=== PATIENT | male | born 1995 | race Caucasian/White ===

== ENCOUNTER 2022-08-10 00:53 | Emergency (ER) | payer OTHER ==
[~2022-08-10] VITALS: Ht 190.5 cm; Wt 113.6 kg
[2022-08-10 01:07] VITALS: TEMP 98.4
[2022-08-10 01:50] LABS: BASOPHILS % (AUTO) 1.1 % (0.0-2.0); EOSINOPHILS % (AUTO) 1.4 % (1.0-6.0); HEMOGLOBIN 14.4 g/dL (13.5-17.5); LYMPHOCYTES # (AUTO) 2.5 K/uL (1.0-4.8); LYMPHOCYTES % (AUTO) 24.2 % (22.0-44.0); MEAN CORPUSCULAR HEMOGLOBIN 30.2 pg (26.0-34.0); MEAN CORPUSCULAR HGB CONC 34.2 G/dL (31.0-37.0); MEAN CORPUSCULAR VOLUME 88 fL (80-100); MONOCYTES # (AUTO) 0.9 K/uL (0.1-1.0); MONOCYTES % (AUTO) 8.7 % (2.0-9.0); NEUTROPHILS # (AUTO) 6.8 K/uL (1.8-7.7); NEUTROPHILS % (AUTO) 64.6 % (40.0-70.0); PLATELET COUNT (AUTO) 244 K/uL (150-450); RED BLOOD CELL COUNT(AUTO) 4.76 MIL/uL (4.50-5.90); RED CELL DISTRIBUTION WIDTH 13.6 % (11.5-14.5)
[2022-08-10 01:59] LABS: ANION GAP 10 mmol/L (8-16); CALCIUM, TOTAL 9.1 mg/dL (8.8-10.5); CARBON DIOXIDE 27 mmol/L (22-29); CHLORIDE 105 mmol/L (98-107); CREATININE 1.02 mg/dL (0.60-1.30); GLOMERULAR FILTR. RATE CALC > 60 mL/min (>60); GLUCOSE,RANDOM 93 mg/dL (70-110); SODIUM SERUM 142 mmol/L (136-145)
[2022-08-10 02:04] LABS: ALANINE AMINOTRANSFERASE 23 U/L (12-78); ALBUMIN 3.5 g/dL (3.4-5.0); ALKALINE PHOSPHATASE 82 U/L (46-116); ASPARTATE AMINOTRANSFERASE 16 U/L (15-37); BILIRUBIN,TOTAL 0.5 mg/dL (0.1-1.0); TOTAL PROTEIN, SERUM 7.1 g/dL (6.4-8.2)
[2022-08-10 04:19] VITALS: BP 140/68; PULSE 68; RESP 18
== END 2022-08-10 06:07 | disposition home or self-care (01) ==
LOC: EMS 00:53
DX: F20.9 Schizophrenia, unspecified (principal); Z59.00 Homelessness unspecified
CPT/HCPCS: 80053; 85025; 36415; 99284; G0480

== ENCOUNTER 2022-08-28 15:31 | Inpatient (IN) | payer MEDICAID, OTHER ==
[~2022-08-28] VITALS: Ht 190.5 cm; Wt 121.3 kg
[2022-08-28 18:14] LABS: COVID AG,FIA SOURCE NASOPHARYNGEAL
[2022-08-28 18:24] LABS: AMPHET/METH SCREEN,URINE NEGATIVE (NEGATIVE); BARBITURATE SCREEN, URINE NEGATIVE (NEGATIVE); BENZODIAZEPINES SCREEN,URINE NEGATIVE (NEGATIVE); CANNABINOID SCREEN,URINE NEGATIVE (NEGATIVE); COCAINE SCREEN,URINE NEGATIVE (NEGATIVE); METHADONE SCREEN, URINE NEGATIVE (NEGATIVE); OPIATE SCREEN,URINE NEGATIVE (NEGATIVE); PHENCYCLIDINE SCREEN,URINE NEGATIVE (NEGATIVE)
[2022-08-28 20:25] LABS: BASOPHILS % (AUTO) 1.3 % (0.0-2.0); EOSINOPHILS % (AUTO) 2.2 % (1.0-6.0); HEMATOCRIT 43.8 % (41-53); HEMOGLOBIN 14.9 g/dL (13.5-17.5); LYMPHOCYTES # (AUTO) 2.1 K/uL (1.0-4.8); LYMPHOCYTES % (AUTO) 20.2 % (22.0-44.0); MEAN CORPUSCULAR HEMOGLOBIN 30.5 pg (26.0-34.0); MEAN CORPUSCULAR VOLUME 90 fL (80-100); MONOCYTES # (AUTO) 0.7 K/uL (0.1-1.0); MONOCYTES % (AUTO) 6.5 % (2.0-9.0); NEUTROPHILS # (AUTO) 7.4 K/uL (1.8-7.7); NEUTROPHILS % (AUTO) 69.8 % (40.0-70.0); PLATELET COUNT (AUTO) 290 K/uL (150-450); RED BLOOD CELL COUNT(AUTO) 4.89 MIL/uL (4.50-5.90); RED CELL DISTRIBUTION WIDTH 13.6 % (11.5-14.5)
[2022-08-28 20:35] LABS: ANION GAP 8 mmol/L (8-16); CALCIUM, TOTAL 9.2 mg/dL (8.8-10.5); CARBON DIOXIDE 27 mmol/L (22-29); CHLORIDE 101 mmol/L (98-107); CREATININE 1.11 mg/dL (0.60-1.30); GLOMERULAR FILTR. RATE CALC > 60 mL/min (>60); GLUCOSE,RANDOM 95 mg/dL (70-110); POTASSIUM 4.2 mmol/L (3.5-5.1); SODIUM SERUM 136 mmol/L (136-145)
[2022-08-28 20:41] LABS: ALANINE AMINOTRANSFERASE 20 U/L (12-78); ALBUMIN 3.7 g/dL (3.4-5.0); ALKALINE PHOSPHATASE 87 U/L (46-116); ASPARTATE AMINOTRANSFERASE 17 U/L (15-37); BILIRUBIN,TOTAL 0.2 mg/dL (0.1-1.0); TOTAL PROTEIN, SERUM 7.4 g/dL (6.4-8.2)
[2022-08-28] MEDS ORDERED: LORazepam 2 MG TABLET PO PRN (21:45)
[2022-08-28] MEDS ORDERED: HALOPERIDOL 5 MG TABLET PO PRN (21:45)
[2022-08-29] MEDS ORDERED: HALOPERIDOL LACTATE 5 MG/ML VIAL ONE (03:49)
[2022-08-29] MEDS ORDERED: DiphenhydrAMINE HCL 50 MG/ML VIAL ONE (03:49)
[2022-08-29] MEDS ORDERED: LORazepam 2 MG/ML VIAL ONE (03:49)
[2022-08-29] MEDS ORDERED: HALOPERIDOL LACTATE 5 MG/ML VIAL IM ONE (04:00)
[2022-08-29] MEDS ORDERED: DiphenhydrAMINE HCL 50 MG/ML VIAL IM ONE (04:00)
[2022-08-29] MEDS ORDERED: LORazepam 2 MG/ML VIAL IM ONE (04:00)
[2022-08-30 00:43] VITALS: BP 126/66; PULSE 72; RESP 18; TEMP 97.8; O2SAT 99
[2022-08-30 08:13] VITALS: BP 120/82; PULSE 79; RESP 18; TEMP 97.5; O2SAT 98
[2022-08-30] MEDS: ALOE VERA 100% 360 ML GEL TP SCH ×2 (09:00→17:15)
[2022-08-30] MEDS ORDERED: MAG HYDROX/AL HYDROX/SIMETH ES 30 ML SUSPENSION UDCUP PO PRN (16:30)
[2022-08-30] MEDS ORDERED: ALBUTEROL SULFATE HFA 90 MCG/PUFF 8 GM INHALER IH PRN (16:30)
[2022-08-30] MEDS ORDERED: NICOTINE 14 MG/24 HOUR PATCH TD PRN (16:30)
[2022-08-30] MEDS ORDERED: GuaiFENesin/D-METHORPHAN [SUGAR-FREE] 200-20MG/10 ML SYRUP UDCUP PO PRN (16:30)
[2022-08-30] MEDS ORDERED: ONDANSETRON HCL 4 MG TABLET PO PRN (16:30)
[2022-08-30] MEDS ORDERED: PETROLATUM,WHITE 28 GM JELLY TP PRN (16:30)
[2022-08-30] MEDS ORDERED: DOCUSATE SODIUM 100 MG CAPSULE PO PRN (16:30)
[2022-08-30] MEDS ORDERED: ACETAMINOPHEN 325 MG TABLET PO PRN (16:30)
[2022-08-30] MEDS ORDERED: CloNIDine HCL 0.1 MG TABLET PO PRN (16:30)
[2022-08-30] MEDS ORDERED: LOPERAMIDE HCL 2 MG CAPSULE PO PRN (16:30)
[2022-08-30] MEDS ORDERED: IBUPROFEN 400 MG TABLET PO PRN (16:30)
[2022-08-30] MEDS ORDERED: MAGNESIUM HYDROXIDE SUSPENSION 30 ML UDCUP PO PRN (16:30)
[2022-08-30 20:12] VITALS: BP 107/62; PULSE 78; RESP 18; TEMP 98; O2SAT 98
[2022-08-31] MEDS: ALOE VERA 100% 360 ML GEL TP SCH ×2 (09:17→17:00)
[2022-08-31] MEDS ORDERED: LORazepam 2 MG/ML VIAL ONE (10:21)
[2022-08-31] MEDS ORDERED: HALOPERIDOL LACTATE 5 MG/ML VIAL ONE (10:22)
[2022-08-31] MEDS ORDERED: LORazepam 2 MG/ML VIAL IM ONE (10:30)
[2022-08-31] MEDS ORDERED: HALOPERIDOL LACTATE 5 MG/ML VIAL IM ONE (10:30)
[2022-08-31] MEDS: RisperiDONE 1 MG TABLET PO SCH (17:00)
[2022-08-31 20:13] VITALS: BP 104/62; PULSE 74; RESP 20; TEMP 98; O2SAT 98
[2022-09-01 08:31] VITALS: BP 122/70; PULSE 67; RESP 18; TEMP 97.2; O2SAT 98
[2022-09-01] MEDS: ALOE VERA 100% 360 ML GEL TP SCH ×2 (09:00→17:00)
[2022-09-01] MEDS: RisperiDONE 1 MG TABLET PO SCH ×2 (09:00→17:00)
[2022-09-01 20:10] VITALS: BP 137/93; PULSE 85; RESP 19; TEMP 97.8; O2SAT 96
[2022-09-02 07:53] LABS: HEMOGLOBIN A1C 5.2 % (3.8-5.6)
[2022-09-02 08:09] LABS: CHOL/HDL RATIO 4.2 (4.2-7.3); THYROID STIMULATING HORMONE 4.05 uIU/mL (0.36-3.74)
[2022-09-02] MEDS: RisperiDONE 1 MG TABLET PO SCH ×2 (09:00→17:00)
[2022-09-02] MEDS: ALOE VERA 100% 360 ML GEL TP SCH ×2 (09:00→17:00)
[2022-09-02 09:17] VITALS: BP 140/76; PULSE 78; RESP 16; TEMP 98; O2SAT 99
[2022-09-02 20:16] VITALS: BP 140/69; PULSE 75; RESP 20; TEMP 97.6; O2SAT 96
[2022-09-03] MEDS: ALOE VERA 100% 360 ML GEL TP SCH ×2 (08:24→17:00)
[2022-09-03] MEDS: RisperiDONE 1 MG TABLET PO SCH ×2 (08:24→17:00)
[2022-09-03 08:28] VITALS: BP 124/66; PULSE 81; RESP 18; TEMP 98.2; O2SAT 98
[2022-09-03 19:53] VITALS: BP 131/71; PULSE 79; RESP 19; TEMP 97.8; O2SAT 97
[2022-09-03 21:56] VITALS: BP 131/71; PULSE 79; RESP 19; TEMP 97.8; O2SAT 97
[2022-09-03] MEDS ORDERED: DiphenhydrAMINE HCL 50 MG/ML VIAL ONE (22:44)
[2022-09-03] MEDS ORDERED: LORazepam 2 MG/ML VIAL ONE (22:44)
[2022-09-03] MEDS ORDERED: HALOPERIDOL LACTATE 5 MG/ML VIAL ONE (22:44)
[2022-09-03] MEDS ORDERED: LORazepam 2 MG/ML VIAL IM ONE (22:45)
[2022-09-03] MEDS ORDERED: HALOPERIDOL LACTATE 5 MG/ML VIAL IM ONE (22:45)
[2022-09-03] MEDS ORDERED: DiphenhydrAMINE HCL 50 MG/ML VIAL IM ONE (22:45)
[2022-09-04] MEDS: RisperiDONE 1 MG TABLET PO SCH ×2 (08:18→16:28)
[2022-09-04] MEDS: ALOE VERA 100% 360 ML GEL TP SCH ×2 (08:18→16:29)
[2022-09-04 08:37] VITALS: BP 129/79; PULSE 80; RESP 20; TEMP 96.8; O2SAT 99
[2022-09-04 21:53] VITALS: BP 144/93; PULSE 65; RESP 18; TEMP 97.2; O2SAT 99
[2022-09-05 08:15] VITALS: BP 119/74; PULSE 62; RESP 18; TEMP 98.3; O2SAT 98
[2022-09-05] MEDS: RisperiDONE 1 MG TABLET PO SCH ×3 (08:40→16:25)
[2022-09-05] MEDS: ALOE VERA 100% 360 ML GEL TP SCH ×2 (08:41→16:26)
[2022-09-05 20:18] VITALS: BP 127/66; PULSE 79; RESP 20; TEMP 98.3; O2SAT 97
[2022-09-06] MEDS: RisperiDONE 1 MG TABLET PO SCH ×3 (08:08→17:00)
[2022-09-06] MEDS: ALOE VERA 100% 360 ML GEL TP SCH ×3 (08:08→17:00)
[2022-09-06 08:24] VITALS: BP 144/85; PULSE 77; RESP 18; TEMP 98.2; O2SAT 97
[2022-09-06 20:20] VITALS: BP 136/81; PULSE 94; RESP 20; TEMP 98.2; O2SAT 98
[2022-09-06] MEDS ORDERED: LORazepam 2 MG/ML VIAL ONE (21:11)
[2022-09-06] MEDS ORDERED: DiphenhydrAMINE HCL 50 MG/ML VIAL ONE (21:11)
[2022-09-06] MEDS ORDERED: HALOPERIDOL LACTATE 5 MG/ML VIAL ONE (21:12)
[2022-09-06] MEDS ORDERED: DiphenhydrAMINE HCL 50 MG/ML VIAL IM ONE (21:15)
[2022-09-06] MEDS ORDERED: HALOPERIDOL LACTATE 5 MG/ML VIAL IM ONE (21:15)
[2022-09-06] MEDS ORDERED: LORazepam 2 MG/ML VIAL IM ONE (21:15)
[2022-09-07] MEDS: RisperiDONE 1 MG TABLET PO SCH ×2 (08:55→16:38)
[2022-09-07] MEDS: ALOE VERA 100% 360 ML GEL TP SCH ×2 (08:55→16:38)
[2022-09-07 09:00] VITALS: BP 107/60; PULSE 65; RESP 16; TEMP 97.2; O2SAT 99
[2022-09-07 20:16] VITALS: BP 110/62; PULSE 70; RESP 18; TEMP 97.6; O2SAT 98
[2022-09-08 08:26] VITALS: BP 113/61; PULSE 68; RESP 17; TEMP 97.8; O2SAT 94
[2022-09-08] MEDS: RisperiDONE 1 MG TABLET PO SCH ×2 (09:00→17:00)
[2022-09-08] MEDS: ALOE VERA 100% 360 ML GEL TP SCH ×2 (09:00→17:00)
[2022-09-08] MEDS ORDERED: DiphenhydrAMINE HCL 50 MG/ML VIAL IM ONE (17:15)
[2022-09-08] MEDS ORDERED: HALOPERIDOL LACTATE 5 MG/ML VIAL IM ONE (17:15)
[2022-09-08] MEDS ORDERED: LORazepam 2 MG/ML VIAL IM ONE (17:15)
[2022-09-08 20:13] VITALS: BP 134/62; PULSE 73; RESP 20; TEMP 98.3; O2SAT 97
[2022-09-09 08:43] VITALS: BP 121/66; PULSE 60; RESP 18; TEMP 98.2; O2SAT 98
[2022-09-09] MEDS: RisperiDONE 1 MG TABLET PO SCH ×2 (09:00→17:00)
[2022-09-09] MEDS: ALOE VERA 100% 360 ML GEL TP SCH ×2 (09:00→17:00)
[2022-09-09 20:12] VITALS: BP 114/64; PULSE 68; RESP 18; TEMP 98; O2SAT 98
[2022-09-10 08:29] VITALS: BP 126/65; PULSE 79; RESP 18; TEMP 97.8; O2SAT 98
[2022-09-10] MEDS: RisperiDONE 1 MG TABLET PO SCH ×2 (09:00→17:00)
[2022-09-10] MEDS: ALOE VERA 100% 360 ML GEL TP SCH ×2 (09:00→17:00)
[2022-09-10] MEDS ORDERED: HALOPERIDOL LACTATE 5 MG/ML VIAL ONE (18:04)
[2022-09-10] MEDS ORDERED: LORazepam 2 MG/ML VIAL ONE (18:04)
[2022-09-10] MEDS ORDERED: DiphenhydrAMINE HCL 50 MG/ML VIAL ONE (18:04)
[2022-09-10] MEDS ORDERED: DiphenhydrAMINE HCL 50 MG/ML VIAL IM ONE (18:15)
[2022-09-10] MEDS ORDERED: HALOPERIDOL LACTATE 5 MG/ML VIAL IM ONE (18:15)
[2022-09-10] MEDS ORDERED: LORazepam 2 MG/ML VIAL IM ONE (18:15)
[2022-09-10 20:17] VITALS: BP 125/66; PULSE 80; RESP 18; TEMP 98
[2022-09-11 08:12] VITALS: RESP 18
[2022-09-11] MEDS: RisperiDONE 1 MG TABLET PO SCH ×2 (08:56→17:00)
[2022-09-11] MEDS: ALOE VERA 100% 360 ML GEL TP SCH ×2 (08:57→17:00)
[2022-09-11 20:12] VITALS: BP 117/67; PULSE 70; RESP 19; TEMP 98; O2SAT 97
[2022-09-12] MEDS: ALOE VERA 100% 360 ML GEL TP SCH ×2 (08:03→17:00)
[2022-09-12] MEDS: RisperiDONE 1 MG TABLET PO SCH ×2 (08:03→17:00)
[2022-09-12 08:14] VITALS: BP 121/74; PULSE 67; RESP 18; TEMP 97.2; O2SAT 97
[2022-09-12 20:09] VITALS: BP 125/72; PULSE 66; RESP 20; TEMP 98.5; O2SAT 97
[2022-09-12] MEDS: ZOLPIDEM TARTRATE 10 MG TABLET PO PRN (23:21)
[2022-09-13 08:14] VITALS: BP 133/86; PULSE 81; RESP 18; TEMP 97.9; O2SAT 96
[2022-09-13] MEDS: RisperiDONE 1 MG TABLET PO SCH ×3 (08:26→17:00)
[2022-09-13] MEDS: ALOE VERA 100% 360 ML GEL TP SCH ×2 (09:00→17:00)
[2022-09-13 20:12] VITALS: BP 129/84; PULSE 84; RESP 20; TEMP 98; O2SAT 98
[2022-09-14 08:17] VITALS: BP 149/96; PULSE 71; RESP 18; TEMP 97.9; O2SAT 98
[2022-09-14] MEDS: RisperiDONE 1 MG TABLET PO SCH ×2 (08:45→16:07)
[2022-09-14] MEDS: ALOE VERA 100% 360 ML GEL TP SCH ×2 (08:45→16:07)
[2022-09-14] MEDS ORDERED: LORazepam 2 MG/ML VIAL ONE (11:32)
[2022-09-14] MEDS ORDERED: DiphenhydrAMINE HCL 50 MG/ML VIAL ONE (11:33)
[2022-09-14] MEDS ORDERED: HALOPERIDOL LACTATE 5 MG/ML VIAL ONE (11:34)
[2022-09-14] MEDS ORDERED: LORazepam 2 MG/ML VIAL IM ONE (11:45)
[2022-09-14] MEDS ORDERED: HALOPERIDOL LACTATE 5 MG/ML VIAL IM ONE (11:45)
[2022-09-14] MEDS ORDERED: DiphenhydrAMINE HCL 50 MG/ML VIAL IM ONE (11:45)
[2022-09-14 23:30] VITALS: BP 136/86; PULSE 77; RESP 18; TEMP 97.7; O2SAT 98
[2022-09-15 08:28] VITALS: BP 119/65; PULSE 63; RESP 17; TEMP 97.2; O2SAT 99
[2022-09-15] MEDS: RisperiDONE 1 MG TABLET PO SCH ×2 (08:44→17:00)
[2022-09-15] MEDS: ALOE VERA 100% 360 ML GEL TP SCH ×2 (08:45→17:00)
[2022-09-15 20:03] VITALS: BP 139/84; PULSE 73; RESP 18; TEMP 97.5; O2SAT 97
[2022-09-15] MEDS: ZOLPIDEM TARTRATE 10 MG TABLET PO PRN (20:38)
[2022-09-16] MEDS: RisperiDONE 1 MG TABLET PO SCH ×2 (08:37→17:00)
[2022-09-16 08:51] VITALS: BP 116/68; PULSE 63; RESP 17; TEMP 98; O2SAT 97
[2022-09-16 20:15] VITALS: BP 120/71; PULSE 71; RESP 18; TEMP 98.3; O2SAT 97
[2022-09-16] MEDS: ZOLPIDEM TARTRATE 10 MG TABLET PO PRN (22:10)
[2022-09-17] MEDS: RisperiDONE 1 MG TABLET PO SCH ×2 (08:17→16:24)
[2022-09-17 08:37] VITALS: BP 139/71; PULSE 88; RESP 18; TEMP 98; O2SAT 98
[2022-09-17 20:44] VITALS: BP 136/69; PULSE 80; RESP 18; TEMP 98.4; O2SAT 98
[2022-09-17] MEDS: ZOLPIDEM TARTRATE 10 MG TABLET PO PRN (22:25)
[2022-09-18 08:21] VITALS: BP 130/77; PULSE 78; RESP 16; TEMP 97.9; O2SAT 99
[2022-09-18] MEDS: RisperiDONE 1 MG TABLET PO SCH ×2 (08:47→16:53)
[2022-09-18 20:19] VITALS: BP 156/78; PULSE 77; RESP 18; TEMP 98.3; O2SAT 96
[2022-09-19 08:48] VITALS: BP 117/69; PULSE 74; RESP 16; TEMP 98.3; O2SAT 97
[2022-09-19] MEDS: RisperiDONE 1 MG TABLET PO SCH ×2 (08:50→16:05)
[2022-09-19] MEDS: ZOLPIDEM TARTRATE 10 MG TABLET PO PRN (20:11)
[2022-09-19 20:40] VITALS: BP 126/73; PULSE 81; RESP 17; TEMP 98; O2SAT 97
[2022-09-20 08:20] VITALS: BP 138/84; PULSE 75; RESP 18; TEMP 97.7; O2SAT 97
[2022-09-20] MEDS: RisperiDONE 1 MG TABLET PO SCH (08:46)
[2022-09-20] MEDS ORDERED: RISP1TAB98 PO ×2 (12:41→13:18)
== END 2022-09-20 13:00 | disposition left against medical advice (07) | DRG 750 ==
LOC: EMS 15:32 → B3A 08-30 00:39
PROVIDERS: ADMIT Psychiatry & Neurology Child & Adolescent Psychiatry; ATTEND Psychiatry & Neurology Child & Adolescent Psychiatry
DX: F20.0 Paranoid schizophrenia (principal); E66.9 Obesity, unspecified; F19.10 Other psychoactive substance abuse, uncomplicated; F84.0 Autistic disorder; Z20.822 Contact with and (suspected) exposure to COVID-19; Z53.21 Procedure and treatment not carried out due to patient leaving prior to being seen by health care provider; G47.00 Insomnia, unspecified; R10.13 Epigastric pain; Z59.00 Homelessness unspecified; Z68.33 Body mass index [BMI] 33.0-33.9, adult
CPT/HCPCS: 80053; 80061; 80307; 83036; 84443; 85025; 99285; G0480; J1200; J1630; J2060

== ENCOUNTER 2022-10-08 05:54 | Emergency (ER) | payer MEDICAID, OTHER ==
[~2022-10-08] VITALS: Ht 182.9 cm; Wt 113.6 kg
[~2022-10-08 05:54] MED LIST: RISP1TAB98 PO
[2022-10-08 06:21] VITALS: TEMP 98.3
[2022-10-08] MEDS ORDERED: SELENIUM SULFIDE 1% 207 ML SHAMPOO TP ONE (08:15)
[2022-10-08 13:02] VITALS: BP 135/78; PULSE 88; RESP 16
== END 2022-10-08 13:02 | disposition home or self-care (01) ==
LOC: EMS 05:56
DX: M79.672 Pain in left foot (principal); M79.671 Pain in right foot; B85.0 Pediculosis due to Pediculus humanus capitis; F84.0 Autistic disorder; F12.90 Cannabis use, unspecified, uncomplicated; Z59.00 Homelessness unspecified
CPT/HCPCS: 99285; Z7502; Z7610

== ENCOUNTER 2022-12-01 05:40 | Inpatient (IN) | payer MEDICAID, OTHER ==
[~2022-12-01] VITALS: Ht 190.5 cm; Wt 125.7 kg
[2022-12-01] MEDS ORDERED: RisperiDONE 1 MG TABLET PO ONE (06:30)
[2022-12-01 07:05] LABS: EOSINOPHILS % (AUTO) 2.9 % (1.0-6.0); HEMATOCRIT 40.4 % (41-53); HEMOGLOBIN 13.5 g/dL (13.5-17.5); LYMPHOCYTES # (AUTO) 1.9 K/uL (1.0-4.8); MEAN CORPUSCULAR HEMOGLOBIN 29.6 pg (26.0-34.0); MEAN CORPUSCULAR HGB CONC 33.5 G/dL (31.0-37.0); MEAN CORPUSCULAR VOLUME 88 fL (80-100); MONOCYTES # (AUTO) 0.8 K/uL (0.1-1.0); MONOCYTES % (AUTO) 8.8 % (2.0-9.0); NEUTROPHILS # (AUTO) 5.7 K/uL (1.8-7.7); NEUTROPHILS % (AUTO) 65.3 % (40.0-70.0); PLATELET COUNT (AUTO) 277 K/uL (150-450); RED BLOOD CELL COUNT(AUTO) 4.57 MIL/uL (4.50-5.90); RED CELL DISTRIBUTION WIDTH 13.1 % (11.5-14.5); WHITE BLOOD COUNT (AUTO) 8.7 K/uL (4.5-11.0)
[2022-12-01 07:21] LABS: ANION GAP 7 mmol/L (8-16); CARBON DIOXIDE 26 mmol/L (22-29); CHLORIDE 105 mmol/L (98-107); CREATININE 0.98 mg/dL (0.60-1.30); GLOMERULAR FILTR. RATE CALC > 60 mL/min (>60); GLUCOSE,RANDOM 100 mg/dL (70-110); SODIUM SERUM 138 mmol/L (136-145); UREA NITROGEN, BLOOD 21 mg/dL (7-18)
[2022-12-01 07:25] LABS: ALANINE AMINOTRANSFERASE 31 U/L (12-78); ALBUMIN 3.4 g/dL (3.4-5.0); ALKALINE PHOSPHATASE 79 U/L (46-116); ASPARTATE AMINOTRANSFERASE 22 U/L (15-37); BILIRUBIN,TOTAL 0.4 mg/dL (0.1-1.0); TOTAL PROTEIN, SERUM 6.8 g/dL (6.4-8.2)
[2022-12-01 07:41] LABS: ALCOHOL, BLOOD (SERUM) < 3 mg/dL (0-10)
[2022-12-01 07:52] LABS: COVID AG,FIA SOURCE NASAL SWAB
[2022-12-01 08:15] LABS: SARS-COV2 (COVID) ANTIGEN,FIA Negative (Negative)
[2022-12-01 09:10] LABS: PH,URINE DRUG SCREEN 6.5 (5.0-8.0)
[2022-12-01] MEDS ORDERED: ZOLPIDEM TARTRATE 10 MG TABLET PO PRN (09:15)
[2022-12-01] MEDS ORDERED: HALOPERIDOL 5 MG TABLET PO PRN (09:15)
[2022-12-01] MEDS ORDERED: LORazepam 2 MG TABLET PO PRN (09:15)
[2022-12-01 09:16] LABS: ALCOHOL, URINE DRUG SCREEN NEGATIVE (NEGATIVE); AMPHET/METH SCREEN,URINE NEGATIVE (NEGATIVE); BARBITURATE SCREEN, URINE NEGATIVE (NEGATIVE); BENZODIAZEPINES SCREEN,URINE NEGATIVE (NEGATIVE); CANNABINOID SCREEN,URINE NEGATIVE (NEGATIVE); COCAINE SCREEN,URINE NEGATIVE (NEGATIVE); METHADONE SCREEN, URINE NEGATIVE (NEGATIVE); OPIATE SCREEN,URINE NEGATIVE (NEGATIVE); PHENCYCLIDINE SCREEN,URINE NEGATIVE (NEGATIVE)
[2022-12-01 13:00] VITALS: BP 141/93; PULSE 85; RESP 18; TEMP 97.7; O2SAT 98
[2022-12-01] MEDS ORDERED: LOPERAMIDE HCL 2 MG CAPSULE PO PRN (18:15)
[2022-12-01] MEDS ORDERED: BACITRACIN 28 GM OINTMENT TP PRN (18:15)
[2022-12-01] MEDS ORDERED: DOCUSATE SODIUM 100 MG CAPSULE PO PRN (18:15)
[2022-12-01] MEDS ORDERED: CloNIDine HCL 0.1 MG TABLET PO PRN (18:15)
[2022-12-01] MEDS ORDERED: ONDANSETRON HCL 4 MG TABLET PO PRN (18:15)
[2022-12-01] MEDS ORDERED: MAGNESIUM HYDROXIDE SUSPENSION 30 ML UDCUP PO PRN (18:15)
[2022-12-01] MEDS ORDERED: ACETAMINOPHEN 325 MG TABLET PO PRN (18:15)
[2022-12-01] MEDS ORDERED: IBUPROFEN 600 MG TABLET PO PRN (18:15)
[2022-12-01] MEDS ORDERED: BENZOCAINE/MENTHOL LOZENGE PO PRN (18:15)
[2022-12-01] MEDS ORDERED: OMEPRAZOLE 20 MG CAPSULE PO PRN (18:15)
[2022-12-01] MEDS ORDERED: MAG HYDROX/AL HYDROX/SIMETH ES 30 ML SUSPENSION UDCUP PO PRN (18:15)
[2022-12-01] MEDS ORDERED: PETROLATUM,WHITE 28 GM JELLY TP PRN (18:15)
[2022-12-01] MEDS ORDERED: ALBUTEROL SULFATE HFA 90 MCG/PUFF 8 GM INHALER IH PRN (18:15)
[2022-12-01] MEDS ORDERED: INFLUENZA VIRUS VACCINE QVS 2023-24 (6MO+)/PF 60 MCG/0.5 ML SYRINGE IM. ONE (19:30)
[2022-12-01 20:24] VITALS: BP 143/71; PULSE 80; RESP 20; TEMP 98.4; O2SAT 97
[2022-12-02 08:48] VITALS: BP 109/72; PULSE 75; RESP 18; TEMP 98.2; O2SAT 98
[2022-12-02] MEDS ORDERED: DiphenhydrAMINE HCL 50 MG/ML VIAL IM ONE (09:15)
[2022-12-02] MEDS ORDERED: HALOPERIDOL LACTATE 5 MG/ML VIAL IM ONE ×2 (09:15→10:15)
[2022-12-02] MEDS ORDERED: LORazepam 2 MG/ML VIAL IM ONE ×2 (09:15→10:15)
[2022-12-02] MEDS: BENZTROPINE MESYLATE 2 MG TABLET PO SCH (21:03)
[2022-12-02 21:40] VITALS: BP 127/84; PULSE 67; RESP 16; TEMP 98.2; O2SAT 96
[2022-12-03 08:36] VITALS: RESP 18
[2022-12-03] MEDS: DIVALPROEX SODIUM 500 MG DR TABLET PO SCH ×2 (09:41→17:45)
[2022-12-03] MEDS: LITHIUM CARBONATE 300 MG CAPSULE PO SCH ×2 (09:42→17:40)
[2022-12-03] MEDS: RisperiDONE 3 MG TABLET PO SCH ×2 (09:42→17:40)
[2022-12-03 20:01] VITALS: BP 132/79; PULSE 88; RESP 18; TEMP 98
[2022-12-03] MEDS: BENZTROPINE MESYLATE 2 MG TABLET PO SCH (20:31)
[2022-12-04 08:09] VITALS: BP 123/75; PULSE 100; RESP 18; TEMP 98; O2SAT 98
[2022-12-04] MEDS: DIVALPROEX SODIUM 500 MG DR TABLET PO SCH ×2 (08:41→17:00)
[2022-12-04] MEDS: RisperiDONE 3 MG TABLET PO SCH ×2 (08:41→17:00)
[2022-12-04] MEDS: LITHIUM CARBONATE 300 MG CAPSULE PO SCH ×2 (08:41→17:00)
[2022-12-04] MEDS: BENZTROPINE MESYLATE 2 MG TABLET PO SCH (20:41)
[2022-12-05 02:31] VITALS: BP 143/79; PULSE 96; RESP 18; TEMP 97.9; O2SAT 98
[2022-12-05] MEDS: DIVALPROEX SODIUM 500 MG DR TABLET PO SCH ×2 (09:00→16:48)
[2022-12-05] MEDS: LITHIUM CARBONATE 300 MG CAPSULE PO SCH ×2 (09:00→16:48)
[2022-12-05] MEDS: RisperiDONE 3 MG TABLET PO SCH ×2 (09:00→16:48)
[2022-12-05 09:09] VITALS: RESP 18; TEMP 98
[2022-12-05 21:00] VITALS: BP 150/83; PULSE 96; RESP 18; TEMP 97.7
[2022-12-05] MEDS: BENZTROPINE MESYLATE 2 MG TABLET PO SCH (21:00)
[2022-12-06 08:29] LABS: LITHIUM < 0.20 mmol/L (0.60-1.20)
[2022-12-06 08:48] LABS: VALPROIC ACID < 3 mcg/mL (50-100)
[2022-12-06 08:59] VITALS: BP 144/95; PULSE 100; RESP 20; TEMP 98; O2SAT 95
[2022-12-06] MEDS: RisperiDONE 3 MG TABLET PO SCH ×2 (09:00→17:00)
[2022-12-06] MEDS: DIVALPROEX SODIUM 500 MG DR TABLET PO SCH ×2 (09:00→17:00)
[2022-12-06] MEDS: LITHIUM CARBONATE 300 MG CAPSULE PO SCH ×2 (09:00→17:00)
[2022-12-06] MEDS ORDERED: RISP3TAB63 PO (19:02)
[2022-12-06] MEDS ORDERED: DIVA-112 PO (19:02)
[2022-12-06] MEDS ORDERED: LITH300C3 PO (19:02)
[2022-12-06] MEDS ORDERED: BENZ2TAB71 PO (19:02)
== END 2022-12-06 19:20 | disposition home or self-care (01) | DRG 750 ==
LOC: EMS 05:41 → B3A 11:00
PROVIDERS: ADMIT Psychiatry & Neurology Psychiatry; ATTEND Psychiatry & Neurology Psychiatry
DX: F20.9 Schizophrenia, unspecified (principal); R45.851 Suicidal ideations; G47.00 Insomnia, unspecified; F41.9 Anxiety disorder, unspecified; Z20.822 Contact with and (suspected) exposure to COVID-19; E66.9 Obesity, unspecified; K59.00 Constipation, unspecified; Z59.00 Homelessness unspecified; Z68.34 Body mass index [BMI] 34.0-34.9, adult
CPT/HCPCS: 80053; 80164; 80178; 80307; 85025; 99285; G0480; J1200; J1630; J2060

== ENCOUNTER 2023-01-19 14:08 | Inpatient (IN) | payer MEDICAID, OTHER ==
[~2023-01-19] VITALS: Ht 185.4 cm; Wt 140.0 kg
[~2023-01-19 14:08] MED LIST changes: +BENZ2TAB71 PO; +DIVA-112 PO; +LITH300C3 PO; -RISP1TAB98 PO; +RISP3TAB63 PO
[2023-01-19 15:00] LABS: BASOPHILS % (AUTO) 1.2 % (0.0-2.0); EOSINOPHILS % (AUTO) 3.2 % (1.0-6.0); HEMATOCRIT 40.2 % (41-53); HEMOGLOBIN 13.5 g/dL (13.5-17.5); LYMPHOCYTES # (AUTO) 1.9 K/uL (1.0-4.8); LYMPHOCYTES % (AUTO) 22.5 % (22.0-44.0); MEAN CORPUSCULAR HEMOGLOBIN 29.6 pg (26.0-34.0); MEAN CORPUSCULAR HGB CONC 33.7 G/dL (31.0-37.0); MEAN CORPUSCULAR VOLUME 88 fL (80-100); MONOCYTES # (AUTO) 0.7 K/uL (0.1-1.0); MONOCYTES % (AUTO) 8.8 % (2.0-9.0); NEUTROPHILS # (AUTO) 5.4 K/uL (1.8-7.7); NEUTROPHILS % (AUTO) 64.3 % (40.0-70.0); PLATELET COUNT (AUTO) 258 K/uL (150-450); RED BLOOD CELL COUNT(AUTO) 4.58 MIL/uL (4.50-5.90); RED CELL DISTRIBUTION WIDTH 13.6 % (11.5-14.5); WHITE BLOOD COUNT (AUTO) 8.5 K/uL (4.5-11.0)
[2023-01-19 15:10] LABS: ANION GAP 6 mmol/L (8-16); CALCIUM, TOTAL 8.9 mg/dL (8.8-10.5); CARBON DIOXIDE 28 mmol/L (22-29); CHLORIDE 106 mmol/L (98-107); CREATININE 1.17 mg/dL (0.60-1.30); GLOMERULAR FILTR. RATE CALC > 60 mL/min (>60); GLUCOSE,RANDOM 90 mg/dL (70-110); POTASSIUM 4.3 mmol/L (3.5-5.1); SODIUM SERUM 140 mmol/L (136-145); UREA NITROGEN, BLOOD 21 mg/dL (7-18)
[2023-01-19 15:17] LABS: ALANINE AMINOTRANSFERASE 57 U/L (12-78); ALBUMIN 3.5 g/dL (3.4-5.0); ALKALINE PHOSPHATASE 77 U/L (46-116); ASPARTATE AMINOTRANSFERASE 28 U/L (15-37); BILIRUBIN,TOTAL 0.2 mg/dL (0.1-1.0)
[2023-01-19 15:46] LABS: ALCOHOL, BLOOD (SERUM) < 3 mg/dL (0-10)
[2023-01-19] MEDS ORDERED: HALOPERIDOL 5 MG TABLET PO PRN (18:00)
[2023-01-19] MEDS ORDERED: LORazepam 2 MG TABLET PO PRN (18:00)
[2023-01-19] MEDS ORDERED: ZOLPIDEM TARTRATE 10 MG TABLET PO PRN (18:00)
[2023-01-19 18:58] LABS: COVID AG,FIA SOURCE NASAL SWAB
[2023-01-19 19:20] LABS: SARS-COV2 (COVID) ANTIGEN,FIA Negative (Negative)
[2023-01-20 08:24] VITALS: BP 132/70; PULSE 82; RESP 18; TEMP 98.2; O2SAT 100
[2023-01-20] MEDS: RisperiDONE 3 MG TABLET PO SCH (17:42)
[2023-01-20] MEDS: DIVALPROEX SODIUM 500 MG DR TABLET PO SCH (17:42)
[2023-01-20] MEDS: LITHIUM CARBONATE 300 MG CAPSULE PO SCH (17:42)
[2023-01-20] MEDS ORDERED: IBUPROFEN 600 MG TABLET PO PRN (18:30)
[2023-01-20] MEDS ORDERED: PETROLATUM,WHITE 28 GM JELLY TP PRN (18:30)
[2023-01-20] MEDS ORDERED: MAGNESIUM HYDROXIDE SUSPENSION 30 ML UDCUP PO PRN (18:30)
[2023-01-20] MEDS ORDERED: LOPERAMIDE HCL 2 MG CAPSULE PO PRN (18:30)
[2023-01-20] MEDS ORDERED: ALBUTEROL SULFATE HFA 90 MCG/PUFF 8 GM INHALER IH PRN (18:30)
[2023-01-20] MEDS ORDERED: DOCUSATE SODIUM 100 MG CAPSULE PO PRN (18:30)
[2023-01-20] MEDS ORDERED: ACETAMINOPHEN 325 MG TABLET PO PRN (18:30)
[2023-01-20] MEDS ORDERED: OMEPRAZOLE 20 MG CAPSULE PO PRN (18:30)
[2023-01-20] MEDS ORDERED: MAG HYDROX/ALUMINUM HYD/SIMETH ES 30 ML SUSPENSION UDCUP PO PRN (18:30)
[2023-01-20] MEDS ORDERED: BACITRACIN 28 GM OINTMENT TP PRN (18:30)
[2023-01-20] MEDS ORDERED: ONDANSETRON HCL 4 MG TABLET PO PRN (18:30)
[2023-01-20] MEDS ORDERED: BENZOCAINE/MENTHOL LOZENGE PO PRN (18:30)
[2023-01-20] MEDS ORDERED: CloNIDine HCL 0.1 MG TABLET PO PRN (18:30)
[2023-01-20] MEDS: BENZTROPINE MESYLATE 2 MG TABLET PO SCH (20:21)
[2023-01-20 20:22] VITALS: BP 128/64; PULSE 86; RESP 20; TEMP 98; O2SAT 100
[2023-01-21] MEDS: LITHIUM CARBONATE 300 MG CAPSULE PO SCH ×3 (08:20→17:00)
[2023-01-21] MEDS: RisperiDONE 3 MG TABLET PO SCH ×3 (08:20→17:00)
[2023-01-21] MEDS: DIVALPROEX SODIUM 500 MG DR TABLET PO SCH ×3 (08:20→17:00)
[2023-01-21 08:38] VITALS: BP 115/70; PULSE 71; RESP 17; TEMP 97.7; O2SAT 99
[2023-01-21 20:28] VITALS: BP 142/62; PULSE 96; RESP 20; TEMP 97.7; O2SAT 98
[2023-01-21] MEDS: BENZTROPINE MESYLATE 2 MG TABLET PO SCH (20:29)
[2023-01-22 08:25] VITALS: BP 151/79; PULSE 74; RESP 18; TEMP 98; O2SAT 98
[2023-01-22] MEDS: LITHIUM CARBONATE 300 MG CAPSULE PO SCH ×2 (09:00→16:53)
[2023-01-22] MEDS: DIVALPROEX SODIUM 500 MG DR TABLET PO SCH ×2 (09:00→16:53)
[2023-01-22] MEDS: RisperiDONE 3 MG TABLET PO SCH ×2 (09:00→16:54)
[2023-01-22] MEDS: BENZTROPINE MESYLATE 2 MG TABLET PO SCH (20:02)
[2023-01-22 20:13] VITALS: BP 133/85; PULSE 100; RESP 19; TEMP 98; O2SAT 100
[2023-01-23] MEDS: DIVALPROEX SODIUM 500 MG DR TABLET PO SCH ×2 (09:00→17:00)
[2023-01-23] MEDS: RisperiDONE 3 MG TABLET PO SCH ×2 (09:00→17:00)
[2023-01-23] MEDS: LITHIUM CARBONATE 300 MG CAPSULE PO SCH ×2 (09:00→17:00)
[2023-01-23 09:19] VITALS: BP 138/77; PULSE 87; RESP 18; TEMP 98.5; O2SAT 95
[2023-01-23] MEDS: BENZTROPINE MESYLATE 2 MG TABLET PO SCH (20:33)
[2023-01-23 23:35] VITALS: RESP 18; TEMP 98.3
[2023-01-24] MEDS: DIVALPROEX SODIUM 500 MG DR TABLET PO SCH (08:39)
[2023-01-24] MEDS: LITHIUM CARBONATE 300 MG CAPSULE PO SCH (08:39)
[2023-01-24] MEDS: RisperiDONE 3 MG TABLET PO SCH (08:40)
[2023-01-24 08:44] VITALS: BP 100/63; PULSE 83; RESP 17; TEMP 97.8; O2SAT 97
[2023-01-24 09:28] LABS: VALPROIC ACID 10 mcg/mL (50-100)
[2023-01-24 09:45] LABS: LITHIUM < 0.20 mmol/L (0.60-1.20)
== END 2023-01-24 15:41 | disposition home or self-care (01) | DRG 750 ==
LOC: EMS 14:08 → B3A 20:20
PROVIDERS: ADMIT Psychiatry & Neurology Psychiatry; ATTEND Psychiatry & Neurology Psychiatry
DX: F20.0 Paranoid schizophrenia (principal); F29 Unspecified psychosis not due to a substance or known physiological condition; F41.9 Anxiety disorder, unspecified; F84.0 Autistic disorder; G47.00 Insomnia, unspecified; E66.9 Obesity, unspecified; Z20.822 Contact with and (suspected) exposure to COVID-19; K59.00 Constipation, unspecified; Z59.00 Homelessness unspecified; Z79.899 Other long term (current) drug therapy; Z68.41 Body mass index [BMI] 40.0-44.9, adult
CPT/HCPCS: 80053; 80164; 80178; 85025; 99285; G0480

== ENCOUNTER 2024-01-31 01:07 | Emergency (ER) | payer MEDICAID ==
[~2024-01-31] VITALS: Ht 188 cm; Wt 113.6 kg
[~2024-01-31 01:07] MED LIST changes: -BENZ2TAB71 PO; +BENZ2TAB84 PO; -RISP3TAB63 PO; +RISP3TAB77 PO
[2024-01-31 01:15] VITALS: TEMP 97.7
[2024-01-31] MEDS: ONDANSETRON 4 MG TABLET PO ONE (01:23)
[2024-01-31 01:46] LABS: BASOPHILS % (AUTO) 1.1 % (0.0-2.0); EOSINOPHILS % (AUTO) 3.5 % (1.0-6.0); HEMATOCRIT 45.2 % (41-53); HEMOGLOBIN 15.6 g/dL (13.5-17.5); LYMPHOCYTES # (AUTO) 2.3 K/uL (1.0-4.8); LYMPHOCYTES % (AUTO) 26.6 % (22.0-44.0); MEAN CORPUSCULAR HEMOGLOBIN 30.4 pg (26.0-34.0); MEAN CORPUSCULAR HGB CONC 34.5 G/dL (31.0-37.0); MEAN CORPUSCULAR VOLUME 88 fL (80-100); MONOCYTES # (AUTO) 0.8 K/uL (0.1-1.0); MONOCYTES % (AUTO) 9.2 % (2.0-9.0); NEUTROPHILS # (AUTO) 5.2 K/uL (1.8-7.7); NEUTROPHILS % (AUTO) 59.6 % (40.0-70.0); PLATELET COUNT (AUTO) 210 K/uL (150-450); RED BLOOD CELL COUNT(AUTO) 5.13 MIL/uL (4.50-5.90); RED CELL DISTRIBUTION WIDTH 13.4 % (11.5-14.5); WHITE BLOOD COUNT (AUTO) 8.8 K/uL (4.5-11.0)
[2024-01-31 01:56] LABS: ANION GAP 6 mmol/L (8-16); CALCIUM, TOTAL 8.8 mg/dL (8.8-10.5); CARBON DIOXIDE 30 mmol/L (22-29); CHLORIDE 105 mmol/L (98-107); CREATININE 1.01 mg/dL (0.60-1.30); GLOMERULAR FILTR. RATE CALC > 60 mL/min (>60); GLUCOSE,RANDOM 61 mg/dL (70-110); SODIUM SERUM 141 mmol/L (136-145); UREA NITROGEN, BLOOD 11 mg/dL (7-18)
[2024-01-31 02:30] VITALS: BP 121/78; PULSE 72; RESP 17; O2SAT 96
== END 2024-01-31 02:42 | disposition home or self-care (01) ==
LOC: EMS 01:08
DX: R11.2 Nausea with vomiting, unspecified (principal); F12.90 Cannabis use, unspecified, uncomplicated; F84.0 Autistic disorder
CPT/HCPCS: 99283; 80048; 85025; 36415; Q0162

== ENCOUNTER 2024-02-01 18:39 | Inpatient (IN) | payer MEDICAID ==
[~2024-02-01] VITALS: Ht 188 cm; Wt 114.3 kg
[2024-02-01 18:49] VITALS: O2SAT 100
[2024-02-01 20:38] LABS: COVID AG,FIA SOURCE NASAL SWAB
[2024-02-01 21:00] LABS: SARS-COV2 (COVID) ANTIGEN,FIA Negative (Negative)
[2024-02-01 22:25] LABS: BASOPHILS % (AUTO) 1.4 % (0.0-2.0); EOSINOPHILS % (AUTO) 3.9 % (1.0-6.0); HEMATOCRIT 47.8 % (41-53); HEMOGLOBIN 15.8 g/dL (13.5-17.5); LYMPHOCYTES # (AUTO) 2.3 K/uL (1.0-4.8); LYMPHOCYTES % (AUTO) 29.3 % (22.0-44.0); MEAN CORPUSCULAR HEMOGLOBIN 29.6 pg (26.0-34.0); MEAN CORPUSCULAR HGB CONC 33.1 G/dL (31.0-37.0); MEAN CORPUSCULAR VOLUME 90 fL (80-100); MONOCYTES # (AUTO) 0.7 K/uL (0.1-1.0); MONOCYTES % (AUTO) 8.2 % (2.0-9.0); NEUTROPHILS # (AUTO) 4.6 K/uL (1.8-7.7); NEUTROPHILS % (AUTO) 57.2 % (40.0-70.0); PLATELET COUNT (AUTO) 235 K/uL (150-450); RED BLOOD CELL COUNT(AUTO) 5.33 MIL/uL (4.50-5.90); RED CELL DISTRIBUTION WIDTH 13.3 % (11.5-14.5)
[2024-02-01 22:49] LABS: ALCOHOL, BLOOD (SERUM) < 3 mg/dL (0-10)
[2024-02-01 23:01] LABS: ANION GAP 8 mmol/L (8-16); CARBON DIOXIDE 25 mmol/L (22-29); CHLORIDE 102 mmol/L (98-107); CREATININE 1.01 mg/dL (0.60-1.30); GLOMERULAR FILTR. RATE CALC > 60 mL/min (>60); GLUCOSE,RANDOM 88 mg/dL (70-110); POTASSIUM 3.9 mmol/L (3.5-5.1); SODIUM SERUM 135 mmol/L (136-145); UREA NITROGEN, BLOOD 13 mg/dL (7-18)
[2024-02-02] MEDS ORDERED: ZOLPIDEM TARTRATE 10 MG TABLET PO PRN (03:45)
[2024-02-02] MEDS ORDERED: LORazepam 2 MG TABLET PO PRN (03:45)
[2024-02-02] MEDS ORDERED: HALOPERIDOL 5 MG TABLET PO PRN (03:45)
[2024-02-02] MEDS ORDERED: BACITRACIN 28 GM OINTMENT TP PRN (05:45)
[2024-02-02] MEDS ORDERED: CloNIDine HCL 0.1 MG TABLET PO PRN (05:45)
[2024-02-02] MEDS ORDERED: ALBUTEROL SULFATE HFA 90 MCG/PUFF 8 GM INHALER IH PRN (05:45)
[2024-02-02] MEDS ORDERED: MAGNESIUM HYDROXIDE SUSPENSION 30 ML UDCUP PO PRN (05:45)
[2024-02-02] MEDS ORDERED: BENZOCAINE/MENTHOL LOZENGE PO PRN (05:45)
[2024-02-02] MEDS ORDERED: ACETAMINOPHEN 325 MG TABLET PO PRN (05:45)
[2024-02-02] MEDS ORDERED: ONDANSETRON 4 MG TABLET PO PRN (05:45)
[2024-02-02] MEDS ORDERED: OMEPRAZOLE 20 MG CAPSULE PO PRN (05:45)
[2024-02-02] MEDS ORDERED: IBUPROFEN 600 MG TABLET PO PRN (05:45)
[2024-02-02] MEDS ORDERED: PETROLATUM,WHITE 28 GM JELLY TP PRN (05:45)
[2024-02-02] MEDS ORDERED: MAG HYDROX/ALUMINUM HYD/SIMETH ES 30 ML SUSPENSION UDCUP PO PRN (05:45)
[2024-02-02] MEDS ORDERED: DOCUSATE SODIUM 100 MG CAPSULE PO PRN (05:45)
[2024-02-02] MEDS ORDERED: LOPERAMIDE HCL 2 MG CAPSULE PO PRN (05:45)
[2024-02-02 07:59] VITALS: BP 140/85; PULSE 69; RESP 17; TEMP 98; O2SAT 99
[2024-02-02] MEDS: PNEUMOCOCCAL VACCINE POLYVALENT 0.5 ML SYRINGE [PPSV23] IM. ONE (09:30)
[2024-02-02] MEDS: LITHIUM CARBONATE 300 MG CAPSULE PO SCH (17:25)
[2024-02-02] MEDS: RisperiDONE 3 MG TABLET PO SCH (17:25)
[2024-02-02] MEDS: DIVALPROEX SODIUM 500 MG DR TABLET PO SCH (17:25)
[2024-02-02 20:31] VITALS: BP 118/61; PULSE 100; RESP 19; TEMP 98; O2SAT 100
[2024-02-02] MEDS ORDERED: BENZTROPINE MESYLATE 2 MG TABLET PO SCH (21:00)
[2024-02-02] MEDS: BENZTROPINE MESYLATE 2 MG TABLET PO SCH (21:00)
[2024-02-03 08:13] VITALS: BP 113/60; PULSE 87; RESP 16; TEMP 97.3; O2SAT 99
[2024-02-03 09:40] LABS: BASOPHILS % (AUTO) 0.7 % (0.0-2.0); EOSINOPHILS % (AUTO) 4.1 % (1.0-6.0); HEMATOCRIT 44.2 % (41-53); LYMPHOCYTES # (AUTO) 1.6 K/uL (1.0-4.8); LYMPHOCYTES % (AUTO) 23.3 % (22.0-44.0); MEAN CORPUSCULAR HEMOGLOBIN 30.5 pg (26.0-34.0); MEAN CORPUSCULAR HGB CONC 33.9 G/dL (31.0-37.0); MEAN CORPUSCULAR VOLUME 90 fL (80-100); MONOCYTES # (AUTO) 0.4 K/uL (0.1-1.0); NEUTROPHILS # (AUTO) 4.5 K/uL (1.8-7.7); NEUTROPHILS % (AUTO) 65.9 % (40.0-70.0); PLATELET COUNT (AUTO) 173 K/uL (150-450); RED BLOOD CELL COUNT(AUTO) 4.92 MIL/uL (4.50-5.90); RED CELL DISTRIBUTION WIDTH 13.5 % (11.5-14.5); WHITE BLOOD COUNT (AUTO) 6.9 K/uL (4.5-11.0)
[2024-02-03 10:25] LABS: ALANINE AMINOTRANSFERASE 18 U/L (12-78); ALBUMIN 3.3 g/dL (3.4-5.0); ALKALINE PHOSPHATASE 75 U/L (46-116); ANION GAP 6 mmol/L (8-16); ASPARTATE AMINOTRANSFERASE 12 U/L (15-37); BILIRUBIN,TOTAL 0.3 mg/dL (0.1-1.0); CALCIUM, TOTAL 8.6 mg/dL (8.8-10.5); CARBON DIOXIDE 29 mmol/L (22-29); CHLORIDE 106 mmol/L (98-107); CHOLESTEROL 113 mg/dL (131-200); CREATININE 0.96 mg/dL (0.60-1.30); FREE T4 (FREE THYROXINE) 0.92 ng/dL (0.76-1.46); GLOMERULAR FILTR. RATE CALC > 60 mL/min (>60); GLUCOSE,RANDOM 81 mg/dL (70-110); HDL CHOLESTEROL 38 mg/dL (40-60); LDL CHOL (CALC.) 63 mg/dL (0-130); POTASSIUM 4.1 mmol/L (3.5-5.1); SODIUM SERUM 141 mmol/L (136-145); THYROID STIMULATING HORMONE 3.15 uIU/mL (0.36-3.74); TOTAL PROTEIN, SERUM 6.5 g/dL (6.4-8.2); TRIGLYCERIDES 59 mg/dL (15-150); UREA NITROGEN, BLOOD 10 mg/dL (7-18)
[2024-02-03 20:46] VITALS: BP 130/80; PULSE 98; RESP 16; TEMP 97.3; O2SAT 99
[2024-02-04 08:32] VITALS: BP 140/81; PULSE 70; RESP 17; TEMP 98.1; O2SAT 99
[2024-02-04] MEDS: INFLUENZA VIRUS VACCINE TVS (6MO+) 2024-25/PF 45 MCG/0.5 ML SYRINGE IM. ONE (16:58)
[2024-02-04 20:21] VITALS: BP 140/100; PULSE 95; RESP 17; TEMP 98; O2SAT 99
[2024-02-05 08:56] VITALS: BP 104/60; PULSE 80; RESP 17; TEMP 96.9; O2SAT 97
[2024-02-05 20:26] VITALS: BP 146/90; PULSE 95; RESP 18; TEMP 98; O2SAT 100
[2024-02-06 10:41] VITALS: RESP 18
[2024-02-06 20:25] VITALS: BP 132/68; PULSE 96; RESP 18; TEMP 98; O2SAT 100
[2024-02-07 08:34] VITALS: BP 141/84; PULSE 65; RESP 17; TEMP 96.9; O2SAT 97
[2024-02-07] MEDS: LITHIUM CARBONATE 300 MG CAPSULE PO SCH (16:02)
[2024-02-07] MEDS: DIVALPROEX SODIUM 500 MG DR TABLET PO SCH (16:03)
[2024-02-08 08:48] VITALS: BP 131/86; PULSE 82; RESP 18; TEMP 97; O2SAT 98
[2024-02-08 10:38] LABS: LITHIUM 0.35 mmol/L (0.60-1.20)
[2024-02-08 20:28] VITALS: BP 124/79; PULSE 80; RESP 20; TEMP 97.4; O2SAT 96
[2024-02-09 08:51] VITALS: BP 148/85; PULSE 69; RESP 18; TEMP 97.2; O2SAT 96
[2024-02-09 09:50] LABS: LITHIUM 0.39 mmol/L (0.60-1.20)
[2024-02-09] MEDS ORDERED: DIVA-112 PO (16:18)
[2024-02-09] MEDS ORDERED: RISP3TAB77 PO (16:18)
[2024-02-09] MEDS ORDERED: BENZ2TAB84 PO (16:18)
[2024-02-09 22:23] VITALS: BP 136/88; PULSE 98; RESP 17; TEMP 97.8; O2SAT 97
[2024-02-10 08:39] VITALS: BP 125/65; PULSE 81; RESP 16; TEMP 98; O2SAT 97
== END 2024-02-10 11:10 | disposition home or self-care (01) | DRG 750 ==
LOC: EMS 18:39 → B2S 02-02 03:34
PROVIDERS: ADMIT Psychiatry & Neurology Child & Adolescent Psychiatry; ATTEND Psychiatry & Neurology Psychiatry
PROC: GZ51ZZZ Individual Psychotherapy, Behavioral (ICD-10-PCS; principal; 2024-02-03)
DX: F25.9 Schizoaffective disorder, unspecified (principal); R45.851 Suicidal ideations; E66.9 Obesity, unspecified; E78.5 Hyperlipidemia, unspecified; Z20.822 Contact with and (suspected) exposure to COVID-19; F41.9 Anxiety disorder, unspecified; G47.00 Insomnia, unspecified; I10 Essential (primary) hypertension; Z68.32 Body mass index [BMI] 32.0-32.9, adult
CPT/HCPCS: 80048; 80053; 80061; 80164; 80178; 84439; 84443; 85025; 90686; 99285; G0480

== ENCOUNTER 2024-03-12 00:47 | Emergency (ER) | payer MEDICAID, OTHER ==
[~2024-03-12] VITALS: Ht 188 cm; Wt 118.2 kg
[~2024-03-12 00:47] MED LIST changes: -LITH300C3 PO
[2024-03-12 00:53] VITALS: BP 114/56; PULSE 88; RESP 18; TEMP 97.9; O2SAT 98
[2024-03-12 02:03] LABS: COVID AG,FIA SOURCE NASAL SWAB
[2024-03-12 02:08] LABS: EOSINOPHILS % (AUTO) 4.6 % (1.0-6.0); HEMATOCRIT 41.8 % (41-53); HEMOGLOBIN 14.4 g/dL (13.5-17.5); LYMPHOCYTES # (AUTO) 2.2 K/uL (1.0-4.8); LYMPHOCYTES % (AUTO) 23.6 % (22.0-44.0); MEAN CORPUSCULAR HEMOGLOBIN 30.4 pg (26.0-34.0); MEAN CORPUSCULAR HGB CONC 34.4 G/dL (31.0-37.0); MEAN CORPUSCULAR VOLUME 89 fL (80-100); MONOCYTES # (AUTO) 0.7 K/uL (0.1-1.0); MONOCYTES % (AUTO) 7.4 % (2.0-9.0); NEUTROPHILS % (AUTO) 63.4 % (40.0-70.0); PLATELET COUNT (AUTO) 333 K/uL (150-450); RED BLOOD CELL COUNT(AUTO) 4.73 MIL/uL (4.50-5.90); RED CELL DISTRIBUTION WIDTH 13.4 % (11.5-14.5); WHITE BLOOD COUNT (AUTO) 9.5 K/uL (4.5-11.0)
[2024-03-12 02:18] LABS: ANION GAP 6 mmol/L (8-16); CALCIUM, TOTAL 8.5 mg/dL (8.8-10.5); CARBON DIOXIDE 30 mmol/L (22-29); CHLORIDE 103 mmol/L (98-107); CREATININE 1.07 mg/dL (0.60-1.30); GLOMERULAR FILTR. RATE CALC > 60 mL/min (>60); GLUCOSE,RANDOM 89 mg/dL (70-110); POTASSIUM 4.3 mmol/L (3.5-5.1); SODIUM SERUM 139 mmol/L (136-145); UREA NITROGEN, BLOOD 15 mg/dL (7-18)
[2024-03-12 02:25] LABS: TROPONIN I-HIGH SENSITIVITY 7 ng/L (<76)
[2024-03-12 02:29] LABS: SARS-COV2 (COVID) ANTIGEN,FIA Negative (Negative)
[2024-03-12 02:36] LABS: B-TYPE NATRIURETIC PEPTIDE < 5 pg/mL (0-100)
== END 2024-03-12 05:56 | disposition admitted as inpatient to this hospital (09) ==
LOC: EMS 00:47
DX: F20.9 Schizophrenia, unspecified (principal); K59.00 Constipation, unspecified; F12.90 Cannabis use, unspecified, uncomplicated; F84.0 Autistic disorder; Z79.899 Other long term (current) drug therapy; Z20.822 Contact with and (suspected) exposure to COVID-19
CPT/HCPCS: 71045; 74018; 80048; 83880; 84484; 85025; 93005; 99285; 36415-L1; 36415-TC